=== PATIENT | male | born 1985 | race Caucasian/White ===

== ENCOUNTER 2023-07-13 13:51 | Emergency (ER) | payer SELFPAY ==
[2023-07-13 13:51] VITALS: BP 107/67; PULSE 72; RESP 14; TEMP 36.9; O2SAT 96; BMI 28.0
--- NOTE | 2023-07-13 14:22 | EX.ED.DYSGE1 ---
HPI <JANAE Cartagena - Last Filed: 07/13/23 15:56> History of Present Illness Chief Complaint: Back Narrative Narrative: Patient is a 38-year-old male with history of chronic back pain, asthma who presents to the emergency department for ongoing back pain as well as nausea and vomiting with 1 episode of vomiting blood today. Per the girlfriend, the patient has been having dry heaves for the last few days, he has been having some coughing and spitting up phlegm. Patient was wheezy seen in the hospital for an asthma exacerbation. Patient states today while at work, he had 3-4 episodes of vomiting with the last one having some blood mixed in with the vomit. Patient is he continues to have right-sided back pain which has been ongoing for 3 to 4 months. He has been seen for this in the emergency department given a CT scan as well as an x-ray with no findings. Patient currently does not have a PCP. He states he does not drink alcohol, does not use NSAIDs or any other medications. Patient does not smoke cigarettes. PFSH <JANAE Cartagena - Last Filed: 07/13/23 15:56> PFSH Home Medications albuterol sulfate 90 mcg/actuation aerosol inhaler (Ventolin HFA) 2 puff inhalation Q4H PRN PRN Asthma 11/04/13 [History Last Taken Unknown] cephalexin 500 mg capsule 500 mg PO Q8 11/04/13 [History Last Taken Unknown] hydrocodone-acetaminophen 5-325mg 5mg-325mg 1 - 2 tab PO Q4H PRN PRN Pain ##20 11/04/13 [Rx Last Taken Unknown] hydroxyzine pamoate 50 mg capsule (Vistaril) 50 mg PO TID PRN PRN Anxiety 11/04/13 [History Last Taken Unknown] quetiapine 300 mg tablet (Seroquel) 300 mg PO DAILY 11/04/13 [History Last Taken Unknown] sulfamethoxazole 800 mg-trimethoprim 160 mg tablet 1 tab PO BID 11/04/13 [History Last Taken Unknown] ondansetron 4 mg disintegrating tablet 4 mg PO Q8H PRN PRN Nausea #10 tabs 07/13/23 [Rx Last Taken Unknown] Allergy/AdvReac Type Severity Reaction Status Date / Time No Known Allergies Allergy Verified 07/13/23 13:52 Social History Smoking Status: Never smoker ROS <Jensen Sorenson NP-C - Last Filed: 07/13/23 15:56> ROS ED ROS Narrative Constitutional: Negative for fever, chills, weight loss, weakness Eyes: Negative for vision loss, vision change, double vision ENT: Negative for any sore throat, ear pain, congestion Cardiovascular: Negative for any chest pain, tightness, palpitations Respiratory: Negative for any cough, sputum production, hemoptysis, dyspnea, dyspnea on exertion, orthopnea Gastrointestinal: Negative for any abdominal pain, diarrhea, constipation, blood in stool. Positive for nausea, vomiting, blood in vomit : Negative for any urinary frequency, dysuria, retention, blood in urine Muscle skeletal: Negative for any neck pain, back pain Neurological: Negative for any headache, syncope, dizziness Skin: Negative for any rashes, itching, abrasions, lacerations Psychiatric: Negative for any depression, anxiety, stress, suicidal ideation, homicidal ideation Hematologic: Negative for any excessive bruising, easy bleeding EXAM <JUAN J CartagenaC - Last Filed: 07/13/23 15:56> Physical Exam Narrative Exam Narrative: Vital signs reviewed. HEET: Head normocephalic atraumatic, TMs clear bilaterally. Posterior pharynx is clear, moist mucous membranes. Nares clear bilaterally. Neck: Supple with no lymphadenopathy or tenderness. No signs of meningismus. Cardiac: Regular rate and rhythm no murmurs gallops or rubs, equal peripheral pulses bilaterally. Respiratory: Lungs clear to auscultation bilaterally. No chest tenderness. Abdomen: Soft, nontender, nondistended. No abdominal bruit or pulsatile masses. No hepatosplenomegaly Extremities: No peripheral edema, no signs of gross trauma or deformity. Active full range of motion of all extremities. Neuro: Cranial nerves II through XII intact, no focal neurological deficits. Skin: Clean dry and intact with no rash, purpura, petechiae, vesicles or pustules. Backs/flank: No CVA tenderness, no midline spinal tenderness, no deformity. Psych: Normal mood and affect. No SI, HI or acute psychosis. Const Vital Signs: 07/13/23 13:51 07/13/23 15:51 07/13/23 16:06 Temperature 98.5 F 97.6 F L Temperature Source Temporal Pulse Rate 72 77 77 Respiratory Rate 14 16 16 Blood Pressure 107/67 110/52 L 110/52 L Blood Pressure Mean 80 71 71 Pulse Ox 96 98 98 Oxygen Delivery Method Room Air Room Air Positive well nourished and well developed General Appearance ED: well developed <Dr. Niranjan Anderson DO - Last Filed: 07/13/23 22:31> Physical Exam Const Vital Signs: 07/13/23 13:51 07/13/23 15:51 07/13/23 16:06 Temperature 98.5 F 97.6 F L Temperature Source Temporal Pulse Rate 72 77 77 Respiratory Rate 14 16 16 Blood Pressure 107/67 110/52 L 110/52 L Blood Pressure Mean 80 71 71 Pulse Ox 96 98 98 Oxygen Delivery Method Room Air Room Air MDM <JANAE aCrtagena - Last Filed: 07/13/23 15:56> MDM Lab Data Labs: Laboratory Results - last 24 hr 07/13/23 14:25 WBC 7.4 RBC 5.33 Hgb 15.0 Hct 43.8 MCV 82.2 MCH 28.1 MCHC 34.2 RDW Std Deviation 40.4 RDW Coeff of [place] 13.7 Plt Count 157 MPV 10.0 Immature Gran % (Auto) 0.400 Neut % (Auto) 69.1 Lymph % (Auto) 19.3 [place] % (Auto) 5.3 Eos % (Auto) 5.6 H Baso % (Auto) 0.3 Absolute Neuts (auto) 5.1 Absolute Lymphs (auto) 1.42 Nucleated RBC % 0 Sodium 141 Potassium 3.6 Chloride 110 H Carbon Dioxide 26.0 Anion Gap 5 BUN 11 Creatinine 0.94 Estim Creat Clear Calc 110.98 Est GFR (MDRD) Af Amer 117 Est GFR (MDRD) Non-Af 96 BUN/Creatinine Ratio 11.7 Glucose 91 Calcium 8.8 Total Bilirubin 0.80 AST 9 L ALT 19 Alkaline Phosphatase 66 Total Protein 6.5 Albumin 3.7 Globulin 2.8 Albumin/Globulin Ratio 1.3 Lipase 38 Treatment and Re-Evaluation :: Differential diagnosis includes however is not limited to: Daylin-Karimi tear, gastroenteritis, gastritis, lumbar strain Patient is in no obvious distress, patient's vital signs are stable, patient looks nontoxic. Patient presents to the emergency department with complaints of nausea and vomiting with 1 episode of blood mixed in with the vomit. Patient also has a complaint of right-sided back pain that has been ongoing for 3 to 4 months. Patient received some basic laboratory values, patient will receive IV fluids, Zofran, GI cocktail. On reevaluation, the patient was feeling better. Patient's laboratory values show a normal CBC, hemoglobin 15, chemistries were unremarkable, lipase was negative. At this time, patient will continue to take ibuprofen or Tylenol, patient be given Zofran for home as well as a referral for a primary care physician. Patient is happy with the plan of care, all questions were answered. Patient struck to return for any worsening symptoms. Patient's vital signs are stable, he was given strict return precautions stable for discharge <Dr. Niranjan Anderson, DO - Last Filed: 07/13/23 22:31> [facility] History & Record Review Discussion w/independent historian: Patient Lab Data Attestation: I reviewed the patient's lab results. Labs: Laboratory Results - last 24 hr 07/13/23 14:25 WBC 7.4 RBC 5.33 Hgb 15.0 Hct 43.8 MCV 82.2 MCH 28.1 MCHC 34.2 RDW Std Deviation 40.4 RDW Coeff of [place] 13.7 Plt Count 157 MPV 10.0 Immature Gran % (Auto) 0.400 Neut % (Auto) 69.1 Lymph % (Auto) 19.3 [place] % (Auto) 5.3 Eos % (Auto) 5.6 H Baso % (Auto) 0.3 Absolute Neuts (auto) 5.1 Absolute Lymphs (auto) 1.42 Nucleated RBC % 0 Sodium 141 Potassium 3.6 Chloride 110 H Carbon Dioxide 26.0 Anion Gap 5 BUN 11 Creatinine 0.94 Estim Creat Clear Calc 110.98 Est GFR (MDRD) Af Amer 117 Est GFR (MDRD) Non-Af 96 BUN/Creatinine Ratio 11.7 Glucose 91 Calcium 8.8 Total Bilirubin 0.80 AST 9 L ALT 19 Alkaline Phosphatase 66 Total Protein 6.5 Albumin 3.7 Globulin 2.8 Albumin/Globulin Ratio 1.3 Lipase 38 Treatment and Re-Evaluation :: Differential diagnosis includes however is not limited to: Daylin-Karimi tear, gastroenteritis, gastritis, lumbar strain Patient is in no obvious distress, patient's vital signs are stable, patient looks nontoxic. Patient presents to the emergency department with complaints of nausea and vomiting with 1 episode of blood mixed in with the vomit. Patient also has a complaint of right-sided back pain that has been ongoing for 3 to 4 months. Patient received some basic laboratory values, patient will receive IV fluids, Zofran, GI cocktail. On reevaluation, the patient was feeling better. Patient's laboratory values show a normal CBC, hemoglobin 15, chemistries were unremarkable, lipase was negative. At this time, patient will continue to take ibuprofen or Tylenol, patient be given Zofran for home as well as a referral for a primary care physician. Patient is happy with the plan of care, all questions were answered. Patient struck to return for any worsening symptoms. Patient's vital signs are stable, he was given strict return precautions stable for discharge I have personally performed a face to face assessment of the patient and have reviewed the JACKY Note. I performed a substantive portion of the visit including all aspects of the following. My sellers findings include: History is 38-year-old male presenting to the emergency room with vomiting with blood streaks. Patient states that he got overheated at work began to retch. States the end of vomiting he had some blood streaks in it. Denies any black or bloody stools. Patient states he was recently put on prednisone for a asthma exacerbation. He has not experienced any indigestion or pain in the epigastrium. No known liver or bleeding disorders. Exam is patient laying in the bed no acute distress. His vital signs are stable. His exam is rather benign Medical Decison Making basic blood work was normal. Normal hemoglobin normal lipase and liver enzymes. I suspect this could be Daylin-Karimi tear versus some early gastritis. Would recommend monitoring return if worsening or concerns Discharge Plan Triage Chief Complaint: Back ED Midlevel Provider: Jensen Sorenson ED Provider: Niranjan Anderson Dx/Rx/DC Orders Clinical Impression: Acute exacerbation of chronic low back pain, Daylin-Karimi tear, Nausea Instructions: Daylin-Karimi Tear, ED Back Pain (Acute or Chronic) Prescriptions: New ondansetron 4 mg tablet,disintegrating 4 mg PO Q8H PRN PRN (Reason: Nausea) Qty: 10 0RF No Action quetiapine [Seroquel] 300 MG tablet 300 mg PO DAILY hydroxyzine pamoate [Vistaril] 50 MG capsule 50 mg PO TID PRN PRN (Reason: Anxiety) sulfamethoxazole-trimethoprim 1 TABLET tablet 1 tab PO BID cephalexin 500 MG capsule 500 mg PO Q8 albuterol sulfate [Ventolin HFA] 1 INHALER inhaler 2 puff inhalation Q4H PRN PRN (Reason: Asthma) hydrocodone-acetaminophen 1 TABLET tablet 1 - 2 tab PO Q4H PRN PRN (Reason: Pain) Qty: 20 0RF Stand Alone Forms: ED Work / School Excuse Primary Care Provider: Monique Meléndez NP Referrals: Jensen Escalera MD [Med Staff - Active Staff] - Monique Meléndez NP, CHEMICAL ENGINEERING PROFESSOR-C [Primary Care Provider] - Activity Restrictions/Additional Instructions: Please follow-up outpatient. Return for any worsening symptoms. Disposition Disposition: Home, Self Care Discharge Date/Time: 07/13/23 16:07
[2023-07-13] MEDS: 0.9% Normal Saline (1000mL) 1,000 ML 1000 ML IV (14:26)
[2023-07-13] MEDS: Ketorolac 15 MG/ML Vial IV (14:26)
[2023-07-13] MEDS: Ondansetron 4 MG/2 ML Vial IV (14:26)
[2023-07-13] MEDS: Mag Hydrox/Al Hydrox/Simeth 30 ML UDC PO (14:27)
[2023-07-13 14:45] LABS: Absolute Lymphocyte Count 1.42 X10^3/uL (0.83-4.51); Absolute Neutrophil Count 5.1 X10^3/uL (2.0-7.7); Basophil# 0.02 X10^3/uL; Basophil% 0.3 % (0-1); Eosinophil# 0.41 X10^3/uL; Eosinophils% 5.6 % (0-5); Hematocrit 43.8 % (40-54); Lymphocyte # 1.42 X10^3/ul (0.83-4.51); Lymphocyte % 19.3 % (19-41); Mean Corp Hgb Conc 34.2 g/dL (32-36); Mean Corpuscular Hgb 28.1 pg (27.0-32.0); Mean Corpuscular Volume 82.2 fL (80-94); Monocyte# 0.39 X10^3/uL; Monocyte% 5.3 % (0-10); NRBC Flagged by Analyzer 0 % (0-5); Neutrophil % 69.1 % (47-70); Platelet Count 157 K/mm3 (150-450); RBC Distribution Width CV 13.7 % (11.6-14.6); RBC Distribution Width SD 40.4 fl (35.1-43.9); Red Blood Count 5.33 M/mm3 (4.6-6.2); White Blood Count 7.4 K/mm3 (4.4-11.0)
[2023-07-13 15:13] LABS: ALB/GLOB Ratio 1.3 RATIO (0.9-2.4); AST(SGOT) 9 U/L (15-37); Alanine Aminotransfer ALT/SGPT 19 U/L (16-61); Albumin, Serum 3.7 g/dL (3.2-5.0); Alkaline Phosphatase 66 U/L (45-117); Anion Gap 5 (5-15); BUN 11 mg/dL (7-18); BUN/Creat Ratio 11.7 RATIO (10-20); Calcium,Total 8.8 mg/dL (8.5-10.1); Chloride 110 mmol/L (98-107); Creatinine, Serum 0.94 mg/dL (0.70-1.30); EST Glomerular Filtration Rate 96 mL/min (>60); Est Glom Filt Rate - Afr Amer 117 mL/min (>60); Estimated Creatinine Clearance 110.98 ml/min; Globulin 2.8 g/dL (2.2-4.2); Glucose 91 mg/dL (74-106); Lipase 38 U/L (13-75); Potassium 3.6 mmol/L (3.5-5.1); Protein, Total 6.5 g/dL (6.4-8.2); Sodium Level 141 mmol/L (136-145)
[2023-07-13 15:51] VITALS: BP 110/52; PULSE 77; RESP 16; O2SAT 98
[2023-07-13 16:06] VITALS: BP 110/52; PULSE 77; RESP 16; TEMP 36.4; O2SAT 98
== END 2023-07-13 16:07 | disposition home or self-care (01) ==
PROVIDERS: Nurse Practitioner; Emergency Provider Emergency Medicine; PCP Nurse Practitioner Family; Visit Provider Emergency Medicine
DX: M54.50 Low back pain, unspecified (principal); K22.6 Gastro-esophageal laceration-hemorrhage syndrome; R11.2 Nausea with vomiting, unspecified; J45.901 Unspecified asthma with (acute) exacerbation; G89.29 Other chronic pain; Z79.899 Other long term (current) drug therapy
CPT/HCPCS: 80053; 83690; 85025; 96361; 96374; 96375; 99283; J7030; J2405